=== PATIENT | male | born 1935 | race Caucasian/White ===

== ENCOUNTER → 2017-01-19 | Outpatient (CLI) | payer MEDICARE, BC ==
[~2017-01-19] VITALS: Ht 182.9 cm; Wt 100.0 kg
[~2017-01-19] MED LIST: ALEVE 220MG220 MG PO; ASPIRIN E.C. 8181 MG PO; FISH OIL1000 MG PO; GLUCOSAMINE & C1 CA1 PO; LIPITOR 10MG10 MG PO; LIPITOR PO; LISINOPRIL/HCTZ PO; METFORMIN PO; PROSCAR 5MG5 MG PO; VITAMIN B121000 MC2 PO; VITAMIN C500 MG PO
== END ==
LOC: COL.RAD 13:30
DX: M47.812 Spondylosis without myelopathy or radiculopathy, cervical region (principal); M48.02 Spinal stenosis, cervical region; M46.92 Unspecified inflammatory spondylopathy, cervical region

== ENCOUNTER → 2017-09-18 | Outpatient (CLI) | payer MEDICARE, BC | LOC: COL.RAD 13:26 | DX: I51.7 Cardiomegaly (principal); I65.21 Occlusion and stenosis of right carotid artery; R91.8 Other nonspecific abnormal finding of lung field | CPT/HCPCS: Q9967 ==

== ENCOUNTER → 2017-10-06 | Outpatient (CLI) | payer MEDICARE, BC | LOC: COL.RAD 12:47 | DX: Z53.8 Procedure and treatment not carried out for other reasons (principal); H02.402 Unspecified ptosis of left eyelid | CPT/HCPCS: A9585 ==

== ENCOUNTER → 2018-01-01 | Outpatient (CLI) | payer MEDICARE, BC ==
[~2018-01-01] VITALS: Ht 182.9 cm; Wt 102.2 kg
[~2018-01-01] MED LIST changes: +LIPITOR 40MG TA40 MG PO; +LUTEIN20 M1 PO; +MOBIC15 MG PO; +MYRBETR50MG PO; +OMEGA-3 1000 MG1 CAP PO; +VITAMIN D31000 IU PO; +ZESTORETIC 12.51 TAB PO
[2018-01-01 07:22] VITALS: BP 132/82; PULSE 76
[2018-01-01 08:05] VITALS: BP 125/76; PULSE 78
== END ==
LOC: COL.RAD 06:39
DX: M54.2 Cervicalgia (principal)
CPT/HCPCS: J1100

== ENCOUNTER 2018-10-21 21:25 | Inpatient (IN) | payer MEDICARE, BC ==
[~2018-10-21] VITALS: Ht 182.9 cm; Wt 98.7 kg
[2018-10-21 22:42] LABS: HEMATOCRIT 38.2 % (42.0-52.0); HEMOGLOBIN 13.1 g/dl (13.5-18.0); MEAN CELL VOLUME 93 fl (80.0-100.0); MEAN CORPUSCULAR HEMOGLOBIN 32 pg (27.0-31.0); MEAN CORPUSCULAR HGB CONC 34 g/dl (33.0-37.0); PLATELET COUNT 204 K/mm3 (130-400); RED BLOOD COUNT 4.13 M/mm3 (4.20-5.60); REDCELL DISTRIBUTION WIDTH-CV 12.2 % (11.5-14.5)
[2018-10-21 22:57] LABS: ALANINE AMINOTRANSFERASE < 6 U/L (21-72); ALBUMIN 3.7 gm/dL (3.5-5.0); ALKALINE PHOSPHATASE 63 U/L (50-136); ANION GAP 11 mmol/L (7-16); AST,SGOT 17 U/L (15-37); BILIRUBIN,TOTAL 0.8 mg/dL (0.0-1.0); BLOOD UREA NITROGEN 21 mg/dL (9-20); CALCIUM 9.3 mg/dL (8.4-10.2); CARBON DIOXIDE 23 mmol/L (22-30); CHLORIDE 100 mmol/L (98-107); CREATINE KINASE 113 U/L (55-170); CREATININE, serum 1.32 (0.66-1.25); GLUCOSE 135 mg/dL (74-106); POTASSIUM 3.6 mmol/L (3.4-5.0); SODIUM 135 mmol/L (137-145); TOTAL PROTEIN 7.2 gm/dL (6.4-8.2)
[2018-10-21 23:14] LABS: C-REACTIVE PROTEIN 19.6 mg/dL (0.0-0.9)
[2018-10-21 23:37] LABS: EOSINOPHIL 1 % (0-4); LYMPHOCYTE 9 % (20.0-51.0); NEUTROPHILS 79 % (42.0-75.2)
[2018-10-22] VITALS (7 sets, daily range): BP systolic 104–133; BP diastolic 53–79; PULSE 76–94; TEMP 97.9–99.2
[2018-10-22 00:34] LABS: CREATINE KINASE 107 U/L (55-170)
[2018-10-22 00:47] LABS: TROPONIN-I < 0.012 ng/mL (0.000-0.035)
--- NOTE | 2018-10-22 01:46 | NUR ---
PT ARRIVED TO MEDICAL UNIT. A+OX4. PT REPORTS PAIN IN BILATERAL LEGS BUT FALLS ASLEEP QUICKLY AFTER DISCUSSION. PT ON 2L VIA NC. ORIENTED TO ROOM AND STAFF. NO NEEDS AT THIS TIME. CALL LIGHT IN REACH. PT DOES NOT KNOW MED REC. REPORTS COMING IN THE AM- WILL CONTACT DR ALATORRE.
--- NOTE | 2018-10-22 01:54 | NUR ---
PT UNABLE TO TRANSFER FROM ED BED TO ROOM BED. TRANSFERED ON SHEET. REPORTS WEAKNESS AND LEG PAIN. PULSES FELT BILATERAL PEDAL AND BILAT RADIAL. LEFT HAND MECHANICAL EXPERT STRONGER THAN RIGHT. PT DRWOSY. REDNESS AND 1+ EDEMA TO BILATERAL FEET. FLUIDS RUNNING IN LEFT FORARM IV- NO REDNESS NO SWELLING. PT ON 2L VIA NC. PLACING PT ON FALL PRECAUTIONS. NO NEEDS AT THIS TIME. CALL LIGHT IN REACH. BED ALARM ON
--- NOTE | 2018-10-22 02:31 | NUR ---
DR ALATORRE REPORTS TO GET MED REC DONE IN AM WITH
--- NOTE | 2018-10-22 05:20 | NUR ---
pt had and uneventful night. pt reports left wrist being sprained since fall at home. no other pain reported since arrival- pt has been sleeping since coming to the floor. pt on 2L then decreased to 1.5- O2 sat now at 96%. other vitals stable. no needs at this time, call light in reach
--- NOTE | 2018-10-22 07:37 | NUR ---
report given to LUIS ALBERTO Gonzáles. pt reports no needs
--- NOTE | 2018-10-22 12:21 | NUR ---
Initial visit; Patient thanked Rn Circulating for looking in on him and offering Spiritual Care and to be added to Rn Circulating's prayer list.
--- NOTE | 2018-10-22 12:26 | NUR ---
Pt in chair, AOx4, denies shortness of breath. Breathing even and unlabored, breath sounds clear. C/O pain to feet and legs 10/10. Non pitting edema to bilateral lower extremities, tender and warmth noted. Will administer pain medications per emar. to bring in his medication list. Denies any needs at this time. Will continue to monitor.
[2018-10-22] MEDS ORDERED: MESTINON 6060 MG/TAB PO (12:37)
[2018-10-22] MEDS ORDERED: NEURONTIN300 MG/CAP PO (12:42)
[2018-10-22] MEDS ORDERED: GLUCOPHAGE XR500 M1 PO (12:43)
[2018-10-22 13:14] LABS: BASO # 0.1 (0.0-0.2); BASO % 0.4 % (0.0-2.0); EOS # 0.1 (0.0-0.7); EOS % 0.4 % (0-4.0); GRAN # 9.8 (1.4-6.5); GRAN % 76.1 % (42.2-75.2); HEMOGLOBIN 12.3 g/dl (13.5-18.0); LYMPH # 1.1 (1.2-3.4); LYMPH % 8.6 % (20.0-51.0); MEAN CELL VOLUME 94 fl (80.0-100.0); MEAN CORPUSCULAR HEMOGLOBIN 32 pg (27.0-31.0); MEAN CORPUSCULAR HGB CONC 34 g/dl (33.0-37.0); MEAN PLATELET VOLUME 9.5 fl (7.4-10.4); MONO # 1.8 (0.1-0.6); PLATELET COUNT 204 K/mm3 (130-400); RED BLOOD COUNT 3.86 M/mm3 (4.20-5.60); REDCELL DISTRIBUTION WIDTH-CV 12.7 % (11.5-14.5)
[2018-10-22 13:16] LABS: HEMATOCRIT 36.3 % (42.0-52.0)
[2018-10-22 13:17] LABS: ALANINE AMINOTRANSFERASE < 6 U/L (21-72); ALBUMIN 3.1 gm/dL (3.5-5.0); ALKALINE PHOSPHATASE 54 U/L (50-136); ANION GAP 7 mmol/L (7-16); AST,SGOT 22 U/L (15-37); BILIRUBIN,TOTAL 0.6 mg/dL (0.0-1.0); BLOOD UREA NITROGEN 20 mg/dL (9-20); CALCIUM 8.9 mg/dL (8.4-10.2); CARBON DIOXIDE 25 mmol/L (22-30); CHLORIDE 103 mmol/L (98-107); CREATININE, serum 1.19 (0.66-1.25); GLUCOSE 120 mg/dL (74-106); POTASSIUM 3.7 mmol/L (3.4-5.0); SODIUM 135 mmol/L (137-145)
--- NOTE | 2018-10-22 14:06 | NUR ---
Pt C/O pain 8/10 to his feet and legs. Administered PRN morphine. Call light in reach.
--- NOTE | 2018-10-22 15:29 | NUR ---
SW met with patient to discuss discharge planning. Patient lives at home with his and plans to return there when discharged. Patient's PCP is Dr Salas and he obtains prescriptions from [facility]. Patient does not use any home health services or DME. Patient is being seen by PT and OT. SW will wait for their discharge recommendations. Patient does have a DPOA. SW will follow as needed.
--- NOTE | 2018-10-22 17:30 | NUR ---
Pts called, updated her on pts status, ordered food for pt. Pt denies need for pain meds at this time.
--- NOTE | 2018-10-22 20:30 | NUR ---
pt resting in bed A+Ox4. pt has a small blister sore on buttox. buttox is blanchable. turning Q2H. pt currently on left side. iv flushes well, no swelling, no pain. pt has 1+ edema on bilateral legs. slight redness on bilateral feet. heels floated. tele on. no needs at this time. call light in reach. fall precautions in place.
--- NOTE | 2018-10-22 22:00 | NUR ---
PT HAD AN INCONTINENT VOID. LINENS CHANGED, MINESH CARE PROVIDED, BARRIER CREAM APPLIED. TURNED PT AT THIS TIME. REPORTS NO NEEDS. CALL LIGHT IN REACH. BED ALARM ON.
[2018-10-23 03:47] VITALS: BP 137/63; PULSE 90; TEMP 97.9
--- NOTE | 2018-10-23 04:37 | NUR ---
pt had incontinent void, linens changed, carlton care provided. reports no needs at this time. call light in reach. turning Q2H.
--- NOTE | 2018-10-23 05:50 | NUR ---
pt had an uneventful night. reported no BM for 4 days- miralax ordered and given. no BM during shift. iv flushes well, no swelling no pain. pt was incontinent 3-4xs. linens changed when wet. carlton care provided each time of incontinence. barrier cream applied. blister like sore on buttox. blanchable sacreal region. heels floated. pt on 1L O2- sat stable. VSS. 5-6/10 pain reported during night- prn meds given and reported relief. no needs at this time. call light in reach
--- NOTE | 2018-10-23 07:09 | NUR ---
report given to Jerardo.
[2018-10-23 07:19] VITALS: BP 121/64; PULSE 91; TEMP 100
[2018-10-23 08:13] LABS: BASO # 0.1 (0.0-0.2); BASO % 0.4 % (0.0-2.0); EOS % 0.3 % (0-4.0); GRAN # 8.9 (1.4-6.5); GRAN % 78.6 % (42.2-75.2); LYMPH # 0.9 (1.2-3.4); LYMPH % 7.6 % (20.0-51.0); MEAN CELL VOLUME 91 fl (80.0-100.0); MEAN CORPUSCULAR HEMOGLOBIN 32 pg (27.0-31.0); MEAN CORPUSCULAR HGB CONC 35 g/dl (33.0-37.0); MEAN PLATELET VOLUME 9.3 fl (7.4-10.4); MONO # 1.4 (0.1-0.6); MONO % 12.4 % (1.7-9.3); PLATELET COUNT 235 K/mm3 (130-400); RED BLOOD COUNT 3.76 M/mm3 (4.20-5.60); REDCELL DISTRIBUTION WIDTH-CV 12.3 % (11.5-14.5)
[2018-10-23 08:16] LABS: HEMATOCRIT 34.3 % (42.0-52.0)
[2018-10-23 08:31] LABS: ALBUMIN 3.1 gm/dL (3.5-5.0); BILIRUBIN,TOTAL 0.6 mg/dL (0.0-1.0); CALCIUM 8.8 mg/dL (8.4-10.2); CREATININE, serum 1.1 (0.66-1.25); POTASSIUM 3.7 mmol/L (3.4-5.0); TOTAL PROTEIN 6.2 gm/dL (6.4-8.2)
[2018-10-23 11:20] VITALS: BP 126/56; PULSE 79; TEMP 97.9
--- NOTE | 2018-10-23 11:53 | NUR ---
Initial visit; Patient thanked Director Employee Communications for looking in on him and wishing him well.
--- NOTE | 2018-10-23 14:03 | NUR ---
SW met with patient and about discharge plan. SNF has been recommended. Patient is agreeable. SW provided medicare.gov resource list for SNF around [place]. Patient chose 1. [facility] and 2. [facility]. SW contacted and faxed referral to both facilities.
--- NOTE | 2018-10-23 14:36 | NUR ---
[facility]
[2018-10-23 15:41] VITALS: BP 100/53; PULSE 74; TEMP 98.5
[2018-10-23 19:55] VITALS: BP 118/68; PULSE 86; TEMP 97.9
--- NOTE | 2018-10-23 23:58 | NUR ---
Patient assessed around 2119. [facility], but has bilateral hearing aides. Alert and oriented x 4. Denies having pain and discomfort. Peripheral IV to left wrist. Flushed with NS. Site patent, and without redness, warmth, swelling, and pain. Edema to BLE. Slight redness to bilateral ankles with some warmth noted. Reports that they are feeling much better now, since he received prednisone. Patient is on room air. Denies having SOB and dyspnea. LS CTA. Respirations even and unlabored. HRR. BSAx4. Denies having any needs or concerns at this time. Resting in bed with eyes closed at this time. Call light is within reach.
[2018-10-24] VITALS (7 sets, daily range): BP systolic 116–147; BP diastolic 65–74; PULSE 57–87; TEMP 97.6–98
--- NOTE | 2018-10-24 06:08 | NUR ---
Patient has had no complaints of pain or discomfort, and has voiced no needs or concerns ths shift. Resting in bed with eyes closed at this time. Call light is within reach.
[2018-10-24 07:00] LABS: BASO # 0.1 (0.0-0.2); BASO % 0.4 % (0.0-2.0); EOS % 0.2 % (0-4.0); GRAN # 10.2 (1.4-6.5); GRAN % 78.9 % (42.2-75.2); HEMOGLOBIN 12.2 g/dl (13.5-18.0); LYMPH # 1.5 (1.2-3.4); LYMPH % 11.2 % (20.0-51.0); MEAN CELL VOLUME 91 fl (80.0-100.0); MEAN CORPUSCULAR HEMOGLOBIN 32 pg (27.0-31.0); MEAN CORPUSCULAR HGB CONC 36 g/dl (33.0-37.0); MEAN PLATELET VOLUME 8.9 fl (7.4-10.4); MONO # 1.1 (0.1-0.6); MONO % 8.5 % (1.7-9.3); PLATELET COUNT 260 K/mm3 (130-400); REDCELL DISTRIBUTION WIDTH-CV 12.1 % (11.5-14.5)
[2018-10-24 07:12] LABS: HEMATOCRIT 34.4 % (42.0-52.0)
[2018-10-24 07:15] LABS: CALCIUM 9.2 mg/dL (8.4-10.2); CREATININE, serum 1.13 (0.66-1.25); POTASSIUM 3.7 mmol/L (3.4-5.0)
--- NOTE | 2018-10-24 07:27 | NUR ---
Received report from LUIS ALBERTO Early.
--- NOTE | 2018-10-24 07:55 | NUR ---
Pt in bed resting watching TV, no C/O pain, shift assessments complete, left Pt call light in reach, bed in lowest position.
--- NOTE | 2018-10-24 10:17 | NUR ---
SW attended clinical rounds. Patient is working well with PT and could possibly go home with home health instead of SNF. SW will follow up with PT to inquire if this would be a safe discharge plan. Patient also reports he would prefer to go home with home health. SW will follo up with patient later today. Patient will likely discharge tomorrow.
--- NOTE | 2018-10-24 15:37 | NUR ---
MEIR met with patient and about home health choice. MEIR provided the medicare.gov resource list for home health. Patient chose [facility]. SW faxed referral.
--- NOTE | 2018-10-24 18:35 | NUR ---
Pt rested well and napped during the day, he was up to the restroom and was steady on his feet, no C/O pain during the shift.
--- NOTE | 2018-10-24 23:41 | NUR ---
Patient assessed around 2119. Sleepy, but woke to tactile stimuli. Did not have hearing aides in at that time. Denied having pain and discomfort. LS CTA. Respirations even and unlabored. HRR. BSAx4. Minimal swelling to bilateral ankles, no redness or warmth noted. Able to ambulate with walker and one assist. Voices no needs or concerns at this time. Resting in bed with eyes closed. Call light is within reach.
[2018-10-25 03:53] VITALS: BP 136/67; PULSE 65; TEMP 97.6
--- NOTE | 2018-10-25 05:04 | NUR ---
Patient complained of not being comfortable in bed. Two staff members helped wtih positioning, which patient states helped some. Denied having pain, stated he just couldnt get comfortable in the bed. Voices no other needs or concerns at this time. Resting in bed with eyes closed at this time. Call light is within reach.
--- NOTE | 2018-10-25 07:15 | NUR ---
Report given to LUIS ALBERTO Bojorquez.
[2018-10-25 07:34] VITALS: BP 131/68; PULSE 69; TEMP 97.2
--- NOTE | 2018-10-25 09:24 | NUR ---
Pt awake and sitting up in bed watching TV, no C/O pain, shift assessments complete, left Pt call light in reach, bed in lowest position.
--- NOTE | 2018-10-25 09:28 | NUR ---
SW attended clinical rounds. Patient will discharge home today with [facility] for assisted, PT and OT. SW will fax discharge orders once they're complete.
[2018-10-25] MEDS ORDERED: PREDNISONE20 MG PO (09:30)
--- NOTE | 2018-10-25 10:52 | NUR ---
Pt discharge complete, INT discontinued, tip intact, summary and education provided, all questions answered. Pt escorted to mauro by MOUNA Escamilla.
== END 2018-10-25 10:40 | disposition home health service (06) | DRG 554 ==
LOC: COL.ER 21:25 → MEDICAL 23:23
PROVIDERS: Emergency Medicine; Physician Assistant; ADMIT Internal Medicine
DX: M10.9 Gout, unspecified (principal); N17.9 Acute kidney failure, unspecified; M35.3 Polymyalgia rheumatica; G70.00 Myasthenia gravis without (acute) exacerbation; W19.XXXA Unspecified fall, initial encounter; Y92.009 Unspecified place in unspecified non-institutional (private) residence as the place of occurrence of the external cause; I12.9 Hypertensive chronic kidney disease with stage 1 through stage 4 chronic kidney disease, or unspecified chronic kidney disease; N18.9 Chronic kidney disease, unspecified; E11.22 Type 2 diabetes mellitus with diabetic chronic kidney disease; M25.542 Pain in joints of left hand; E78.5 Hyperlipidemia, unspecified; D72.829 Elevated white blood cell count, unspecified; Z79.82 Long term (current) use of aspirin; Z79.84 Long term (current) use of oral hypoglycemic drugs; Z96.652 Presence of left artificial knee joint
CPT/HCPCS: 99223-AI; 99231-AI; 99232-AI; 99239; G0378; J1644; J1815; J2270; J2405; J3010; J3370; J7030; J7050; J7512

== ENCOUNTER 2018-12-12 15:10 | Inpatient (IN) | payer MEDICARE, BC ==
[~2018-12-12] VITALS: Ht 182.9 cm; Wt 95.7 kg
[~2018-12-12 15:10] MED LIST changes: +GLUCOPHAGE XR500 M1 PO; +MESTINON 6060 MG/TAB PO; +NEURONTIN300 MG/CAP PO; +PREDNISONE20 MG PO
[2018-12-25] VITALS (11 sets, daily range): BP systolic 90–153; BP diastolic 52–94; PULSE 54–79; TEMP 97.3–98.3
--- NOTE | 2018-12-25 09:48 | NUR ---
Initial visit; Patient and family thanked Balloon Seller for looking in on him and offering God's blessings. Family states patient's Basket Mender has been contacted.
--- NOTE | 2018-12-25 12:30 | NUR ---
returned to room per bed from PACU, awake and alert but very sleepy, does arouse when name is called, IV infusing and placed on pump at 125ml/hr, O2 on at 4L/oxymask and O2 is 100%, ramírez cath patent draining clear ni urine, bulky dressing to right knee CD&I, cryocuff in place to right knee, SCDs and OBINNA hose on left leg, denies needs at this time
--- NOTE | 2018-12-25 12:45 | NUR ---
continues to sleep between checks, and son now at bedside
--- NOTE | 2018-12-25 13:00 | NUR ---
awakens and full assessment completed, see interventions for further info, has sensation to top of thigh on the right and to the knee aon the left, unable to move lower extremities, O2 sat 100% on 4L/oxymask and O2 down to 3L,
--- NOTE | 2018-12-25 13:15 | NUR ---
continues to sleep between checks but awakens when name is called, O2 sat is 97% on 3L/oxymask
--- NOTE | 2018-12-25 13:48 | NUR ---
Dr Luis and Addie DIRECTOR OF PHYSICAL SECURITY in to see patient, awakens and is now able to wiggle toes and has sensation to feet
--- NOTE | 2018-12-25 14:15 | NUR ---
continues to sleep between checks but arouses easily and denies needs
--- NOTE | 2018-12-25 15:13 | NUR ---
awake and looking around when nurse entered room, O2 sat 100% on 3L/oxymask, changed to nasal cannula and will monitor, denies pain or needs
--- NOTE | 2018-12-25 15:18 | NUR ---
SW met with the patient to discuss discharge plan. The patient lives in [place] with his , Maryjane. He reports independence with ADLs and has a walker and motorscooter. The patient's PCP is Dr. Dimitry Salas and he receives his medications at [facility]. He reports no difficulties obtaining his meds. The patient does not have advanced directives in EMR, but he states that he does have them completed and at home. He states that his is his DPOA-HC. The patient plans to return home with his and receive outpatient therapy at [facility] upon discharge. No additional needs at this time.
--- NOTE | 2018-12-25 16:15 | NUR ---
awake and watching TV, c/o "terrible" pain to right knee, medicated with hydrocodone 7.5mg 2 tabs, instructed on ordering something to eat and verbalizes understanding
--- NOTE | 2018-12-25 17:14 | NUR ---
sitting up in bed ready to eat, states relief from pain pills given earlier, denies needs
--- NOTE | 2018-12-25 18:11 | NUR ---
talking on phone, denies needs
--- NOTE | 2018-12-25 18:55 | NUR ---
bedside shift report given to LUIS ALBERTO De Souza
--- NOTE | 2018-12-26 02:45 | NUR ---
Patient ambulated to the door of his room and back this evening. Noted to tolerate this well and state he was sore. Patient denied pain medication at that time, but requested it about an hour later. Patient has been resting well throughout the night. Pain well managed. +3 Pitting edema noted to RLE. Cryocuff placed. Will continue to monitor patient.
[2018-12-26 04:20] VITALS: BP 128/60; PULSE 87; TEMP 99.7
[2018-12-26 06:47] LABS: HEMOGLOBIN 11.2 g/dl (13.5-18.0)
--- NOTE | 2018-12-26 06:56 | NUR ---
resting in bed, bedside shift report received from LUIS ALBERTO De Souza
[2018-12-26 06:58] LABS: HEMATOCRIT 32.6 % (42.0-52.0)
[2018-12-26 07:27] VITALS: BP 116/58; PULSE 83; TEMP 99.7
--- NOTE | 2018-12-26 07:50 | NUR ---
DIRECTOR SCHOOL OF NURSING in and assisted him with am hygiene and then out of bed and breakfast ordered
--- NOTE | 2018-12-26 08:14 | NUR ---
full assessment completed, see interventions for further info
--- NOTE | 2018-12-26 09:45 | NUR ---
physical therapy in to work with patient, ambulated out in waller with steady gait
--- NOTE | 2018-12-26 10:42 | NUR ---
in bed and appears to be sleeping, eyes closed, resp quiet and easy
--- NOTE | 2018-12-26 11:03 | NUR ---
awake now and visiting with family
--- NOTE | 2018-12-26 11:10 | NUR ---
c/o pain 11/12 and medicated with hydrocodone 7.5mg 2 tabs
[2018-12-26 12:02] VITALS: BP 130/61; PULSE 79; TEMP 97.6
--- NOTE | 2018-12-26 12:15 | NUR ---
in bed and appears to be sleeping
--- NOTE | 2018-12-26 13:00 | NUR ---
in bed and appears to be sleeping, lights off, eyes closed, resp quiet and easy
--- NOTE | 2018-12-26 13:26 | NUR ---
ambulated out to waller with physical therapy for group exercises
--- NOTE | 2018-12-26 14:20 | NUR ---
back to room after therapy and sitting up in chair to eat lunch
--- NOTE | 2018-12-26 15:02 | NUR ---
ramírez catheter discontinued, tolerated well
--- NOTE | 2018-12-26 15:55 | NUR ---
assisted up to bathroom and will try and void bowel movement and try to void
--- NOTE | 2018-12-26 16:10 | NUR ---
assisted back to bed, was unable to void or have bowel movement
--- NOTE | 2018-12-26 17:27 | NUR ---
up in chair visiting with a friend
[2018-12-26 17:45] VITALS: BP 119/67; PULSE 89; TEMP 98.4
--- NOTE | 2018-12-26 18:51 | NUR ---
bedside shift report given to LUIS ALBERTO De Souza
[2018-12-26 19:41] VITALS: BP 129/57; PULSE 86; TEMP 98.3
[2018-12-27 00:24] VITALS: BP 118/50; PULSE 81; TEMP 98.7
--- NOTE | 2018-12-27 03:18 | NUR ---
Patient has voided since catheter was removed. Urine noted to be ni. Patient given scheduled Tylenol, and denied the need for PRN pain medication. Patient utilizes urinal for voiding. Noted to sleep well throughout the night. Will conitnue to monitor.
[2018-12-27 04:30] VITALS: BP 127/70; PULSE 84; TEMP 98
--- NOTE | 2018-12-27 08:00 | NUR ---
PATIENT IS A&O. VSS. RATES PAIN IN RLE WITH ACTIVITY AT 5/10. GAVE PRN NORCO, TWO TABS FOR PAIN. RTK DRESSING IS CD&I WITH AQUACEL. TEDS TO BLE. POSITIVE PEDAL PULSES TO BLE. PATIENT EAT/DRINK/VOIDING SUFFICENT AMOUNTS. DC'D IV AND COVERED SITE WITH GAUZE & TAPE. PATIENT INDEPENDENT IN ROOM AND PLANNING TO DISCHARGE HOME LATER TODAY. BREAKFAST ORDERED. AM MEDS GIVEN. HEAD TO TOE WNL
[2018-12-27 08:39] VITALS: BP 106/61; PULSE 85; TEMP 98.1
[2018-12-27] MEDS ORDERED: NORCO 325 MG-7.1 TAB PO (09:02)
[2018-12-27] MEDS ORDERED: ASPI325T6 PO (09:02)
[2018-12-27] MEDS ORDERED: ULTRAM 50MG TAB50 MG PO (09:05)
[2018-12-27 11:02] VITALS: BP 108/55; PULSE 85; TEMP 97.6
--- NOTE | 2018-12-27 12:00 | NUR ---
PATIENT DISCHARGING HOME VIA WHEELCHAIR TO PERSONAL VEHICLE WITH & SON. GAVE DISCHARGE INSTRUCTIONS, PRESCRIPTIONS, AQUACEL & FOLLOW UP APTS. ANSWERED ALL QUESTIONS/CONCERNS. SENT HOME PERSONAL BELONGINGS. PATIENT DISCHARGED.
== END 2018-12-27 12:00 | disposition home or self-care (01) | DRG 470 ==
LOC: JCC 12-25 06:46
PROVIDERS: ADMIT Orthopaedic Surgery
PROC: 0SRC0J9 Replacement of Right Knee Joint with Synthetic Substitute, Cemented, Open Approach (ICD-10-PCS; principal; 2018-12-25 09:30)
DX: M17.11 Unilateral primary osteoarthritis, right knee (principal); M21.161 Varus deformity, not elsewhere classified, right knee
CPT/HCPCS: A4314; A9284; C1776; J0690; J2250; J2704; J3010; J3370; J7120

== ENCOUNTER 2019-01-02 10:36 | Outpatient (CLI) | payer MEDICARE, BC ==
[2019-01-02] VITALS (11 sets, daily range): BP systolic 75–121; BP diastolic 41–71; PULSE 80–93; TEMP 97.4
[~2019-01-02] VITALS: Ht 182.9 cm; Wt 93.6 kg
[~2019-01-02 10:36] MED LIST changes: +ASPI325T6 PO; +NORCO 325 MG-7.1 TAB PO; +ULTRAM 50MG TAB50 MG PO
[2019-01-02 11:18] LABS: HEMOGLOBIN 11.7 g/dl (13.5-18.0); MEAN CELL VOLUME 95 fl (80.0-100.0); MEAN CORPUSCULAR HEMOGLOBIN 32 pg (27.0-31.0); MEAN CORPUSCULAR HGB CONC 34 g/dl (33.0-37.0); MEAN PLATELET VOLUME 8.6 fl (7.4-10.4); PLATELET COUNT 509 K/mm3 (130-400); RED BLOOD COUNT 3.67 M/mm3 (4.20-5.60); REDCELL DISTRIBUTION WIDTH-CV 12.8 % (11.5-14.5)
[2019-01-02 11:22] LABS: HEMATOCRIT 34.7 % (42.0-52.0)
[2019-01-02 11:32] LABS: ALBUMIN 3.5 gm/dL (3.5-5.0); BILIRUBIN,TOTAL 0.7 mg/dL (0.0-1.0); C-REACTIVE PROTEIN 7.1 mg/dL (0.0-0.9); CALCIUM 9.3 mg/dL (8.4-10.2); CREATININE, serum 2.01 (0.66-1.25); POTASSIUM 4.2 mmol/L (3.4-5.0); TOTAL PROTEIN 6.9 gm/dL (6.4-8.2)
[2019-01-02 11:38] LABS: ERYTHROCYTE SEDIMENTATION RATE 65 mm/hr (0-30)
[2019-01-02] MEDS ORDERED: ASPIRIN 32325 MG/TAB PO (16:41)
[2019-01-02] MEDS ORDERED: ULTRAM 50MG TAB50 MG PO (16:42)
[2019-01-02] MEDS ORDERED: NORCO 325 MG-7.1 TAB PO (16:42)
--- NOTE | 2019-01-02 17:42 | NUR ---
Report given to Agnes Peterson.
== END 2019-01-02 18:34 | disposition home or self-care (01) ==
LOC: EUO 10:36
PROVIDERS: Family Medicine
DX: I95.9 Hypotension, unspecified (principal)
CPT/HCPCS: J7030; J7121

== ENCOUNTER → 2019-02-21 | Outpatient (CLI) | payer MEDICARE, BC ==
[~2019-02-21] MED LIST changes: +ASPIRIN 32325 MG/TAB PO
== END ==
LOC: COL.RAD 09:57
DX: R91.8 Other nonspecific abnormal finding of lung field (principal); I77.810 Thoracic aortic ectasia; I71.2 Thoracic aortic aneurysm, without rupture; M47.814 Spondylosis without myelopathy or radiculopathy, thoracic region; Z68.30 Body mass index [BMI] 30.0-30.9, adult
CPT/HCPCS: Q9967

== ENCOUNTER 2022-02-20 10:31 | Emergency (ER) | payer MEDICARE, BC ==
[~2022-02-20] VITALS: Ht 182.9 cm; Wt 90.9 kg
[2022-02-20 10:43] VITALS: TEMP 98.8
[2022-02-20 12:17] VITALS: BP 164/86; PULSE 75
== END 2022-02-20 12:20 | disposition home or self-care (01) ==
LOC: COL.ER 10:31
DX: U07.1 COVID-19 (principal); J02.9 Acute pharyngitis, unspecified
CPT/HCPCS: M0222; Q0222